=== PATIENT | male | born 1985 | race Caucasian/White ===

== ENCOUNTER 2024-08-17 02:00 | Outpatient (RCR) | payer MEDICAID, SELFPAY ==
[2024-08-10] MEDS: Normal Saline Flush 10 ML SYR IVP (08:37)
[2024-08-10 08:57] LABS: HCT 24.9 % (40.0-50.0); HGB 8.7 g/dL (13.5-17.5); MCH 34.9 pg (27.0-33.0); MCHC 34.9 % (32.0-36.0); MCV 100 fL (80-95); RBC 2.49 10^6/uL (4.36-5.78); RDW-SD 64.4 fL
[2024-08-10 09:25] LABS: Platelet Count 6 10^3/uL (130-400)
[2024-08-10 14:14] VITALS: BP 112/69; PULSE 69; RESP 18; TEMP 37.5; O2SAT 98
[2024-08-10 14:15] VITALS: BP 112/69; PULSE 72; RESP 18; TEMP 37.5; O2SAT 98
[2024-08-10 14:40] VITALS: BP 111/68; PULSE 71; RESP 18; TEMP 37.1; O2SAT 99
== END 2024-08-27 23:59 | disposition home or self-care (01) ==
LOC: INF 02:00
PROVIDERS: PCP Nurse Practitioner Primary Care; Visit Provider Internal Medicine Hematology
DX: D61.818 Other pancytopenia (principal); D61.89 Other specified aplastic anemias and other bone marrow failure syndromes
CPT/HCPCS: 36415; 36430; 85027; 86850; 86900; 86901; P9073; P9035

== ENCOUNTER 2024-09-07 08:00 | Outpatient (RCR) | payer MEDICAID, SELFPAY ==
[2024-08-28 00:17] VITALS: BP 111/68; PULSE 71; RESP 18; TEMP 37.1
[2024-09-07 08:43] LABS: HGB 7.9 g/dL (13.5-17.5); MCH 33.9 pg (27.0-33.0); MCHC 34.3 % (32.0-36.0); MCV 99 fL (80-95); MPV 12.7 fL (8.0-11.0); Nucleated RBC 0.5 % (0.0-0.3); Platelet Count 31 10^3/uL (130-400); RBC 2.33 10^6/uL (4.36-5.78); RDW 17.8 % (11.8-14.1); RDW-SD 61.3 fL; WBC 4.35 10^3/uL (4.4-10.8)
[2024-09-07 09:12] LABS: ALT 44 U/L (16-63); AST < 5 U/L (15-37); Albumin 3.4 g/dL (3.4-5.0); Alkaline Phosphatase 53 U/L (46-116); Anion Gap 11.8 mmol/L (3-11); BUN 28 mg/dL (7-18); Bilirubin, Total 1.23 mg/dL (0.2-1.0); CO2 27.2 mmol/L (21.0-32.0); Calcium 8.6 mg/dL (8.5-10.1); Chloride 103 mmol/L (98-107); Glucose 125 mg/dL (74-106); Potassium 4.2 mmol/L (3.5-5.1); Sodium 142 mmol/L (136-145); Total Protein 6.9 g/dL (6.4-8.2)
[2024-09-07 09:44] LABS: Absolute Eosinophil Count 0.04 10^3/uL (0.0-0.7); Absolute Lymphocyte Count 3.87 10^3/uL (1.2-3.4); Absolute Monocyte Count 0.13 10^3/uL (0.1-0.8); Atypical Lymphocytes % 2 %; Diff Comment Manual Differential
[2024-09-07 09:46] LABS: Poikilocytes 2+
[2024-09-07 11:56] VITALS: BP 132/80; PULSE 78; RESP 16; TEMP 36; O2SAT 100
[2024-09-07 12:11] VITALS: BP 116/69; PULSE 74; RESP 18; TEMP 36.8; O2SAT 100
[2024-09-07 12:34] VITALS: BP 123/73; PULSE 69; RESP 18; TEMP 36.6; O2SAT 99
[2024-09-07 12:41] VITALS: BP 129/74; PULSE 67; RESP 18; TEMP 36.7; O2SAT 100
[2024-09-07 13:55] VITALS: BP 133/71; PULSE 74; RESP 16; TEMP 36.4; O2SAT 99
[2024-09-07] MEDS: Normal Saline Flush 10 ML SYR IVP (14:17)
== END 2024-09-26 23:59 | disposition home or self-care (01) ==
LOC: INF 08:00
PROVIDERS: PCP Nurse Practitioner Primary Care; Visit Provider Internal Medicine Hematology
DX: D61.89 Other specified aplastic anemias and other bone marrow failure syndromes (principal)
CPT/HCPCS: 36415; 36430; 80053; 86850; 86900; 86901; 86920; 85025; P9016